=== PATIENT | female | born 2000 | race Hispanic/Latino ===

== ENCOUNTER 2019-12-14 17:38 | Emergency (ER) | payer SELFPAY ==
--- NOTE | 2019-12-14 18:25 | RAD ---
3 views of the left wrist: 12/14/2019 COMPARISON: None HISTORY: Injury, trauma, pain FINDINGS: There is a comminuted and slightly impacted obliquely oriented fracture involving the dista l aspect of the left radius extending into the distal radioulnar joint and the radiocarpal joint. There is an associated chip fracture of the ulnar styloid. No evidence for dislocation. IMPRESSION: Acute fracture of the distal left radius and ulnar styloid.
[2019-12-14] MEDS ORDERED: HYDROcodone/Acetaminophen 5/325 mg Tablet ONE (18:58)
== END 2019-12-14 19:40 | disposition home or self-care (01) ==
LOC: NAV ERS 17:38
DX: S52.502A Unspecified fracture of the lower end of left radius, initial encounter for closed fracture (principal); S52.612A Displaced fracture of left ulna styloid process, initial encounter for closed fracture; F32.9 Major depressive disorder, single episode, unspecified; V86.59XA Driver of other special all-terrain or other off-road motor vehicle injured in nontraffic accident, initial encounter
CPT/HCPCS: 29125